=== PATIENT | male | born 1965 | race Caucasian/White ===

== ENCOUNTER 2022-10-29 10:35 | Outpatient (CLI) | payer BC, SELFPAY | END 2022-10-29 10:36 | disposition home or self-care (01) | PROVIDERS: PCP Family Medicine; Visit Provider Family Medicine | DX: E55.9 Vitamin D deficiency, unspecified (principal); E53.8 Deficiency of other specified B group vitamins; R73.01 Impaired fasting glucose; R03.0 Elevated blood-pressure reading, without diagnosis of hypertension; R53.83 Other fatigue; R00.2 Palpitations; Z13.6 Encounter for screening for cardiovascular disorders | CPT/HCPCS: 80053; 80061; 82306; 82607; 83516; 84443 ==

== ENCOUNTER 2023-03-17 07:43 | Outpatient (CLI) | payer BC, SELFPAY ==
--- OUTSIDE RECORDS SUMMARY | 2023-03-17 07:46 | XMS_ITS | Clinical Summary ---
Author Name Unknown Organization [facility] Address [place], [place] [address] Care Team Providers Care Equal Opportunity Director Name Role Phone [facility] Primary Care Provider [phone] Allergies Active Allergy Reactions Criticality Noted Date Comments Diatrizoate Allergen Other - Describe In Comment Field 09/14/2013 Slurred speech Charly Flavor Rash 10/22/2013 Poison Beth Extract Rash 05/21/2011 Tree Nut Rash 05/21/2011 Cashews Medications No known medications Active Problems Problem Noted Date Diagnosed Date Raynaud's disease 11/02/2013 Eczema 05/21/2011 BPPV (benign paroxysmal positional vertigo) 04/25 Rash 05/21/2011 Osteoarthritis 05/21/2011 Resolved Problems Problem Noted Date Diagnosed Date Resolved Date Overweight (BMI 25.0-29.9) 05/21/2011 0 10/22/2013 Immunizations Name Administration Dates Next Due AMB Influenza, IIV3 (Age >=3 years)(Flu [facility]) 11/26/2011 AMB Influenza, IIV4 PF (=>6 mos Flulaval,Fluzone Fluarix)(Flu Clinic Only) 11/11/2014,11/22/2013 Influenza, IIV3 (Age >=3 years) 11/12/2012 Tdap 10/22/2013 Social History Tobacco Use Types Packs/Day Years Used Date Smoking Tobacco: Never Smokeless Tobacco: Never Tobacco Cessation:Counseling Given: Yes Alcohol Use Standard Drinks/Week Comments Yes 0 (1 standard drink = 0.6 oz pur e alcohol) occas Sex and Gender Information Value Date Recorded Sex Assigned at Not on file Gender Identity Not on file Sexual Orientation Not on file Obstetrics History Last Filed Vital Signs Vital Sign Reading Time Taken Comments Blood Pressure 140/96 03/20/2015 2:02 PM [employer] TECH[employer]ICIAN manual cuff Pulse 68 03/20/2015 2:02 PM AGRIC[employer] ENGINEERING TECHNICIAN Temperature 36.4 ??C (97.6 ??F) 03/20/2015 2 :02 PM AGRICULT[employer] ENGINEERING TECHNICIAN Respiratory Rate - - Oxygen Saturation 100% 03/20/2015 2:0 2 PM AGRICULT[employer] ENGINEERING TECHNICIAN Inhaled Oxygen Concentration - - Weight 81.6 kg (179 lb 12.8 oz) 03/20/2015 2:02 PM AGRIC[employer] ENGINEERING TECHNICIAN Height 177.8 cm (5' 10) 03/20/2015 2:0 2 PM AGRIC[employer] ENGINEERING TECHNICIAN Body Mass Index 25.8 03/20/2015 2:02 PM AGRICULTURAL ENGINEERING TECHNICIAN Plan of Treatment Health Maintenance Due Date Last Done Comments COVID-19 vaccine series (#1) 1967 Depression screening for age 12+ 1979 HIV for age 15-65 1982 Hepatitis C screening for age 18-79 1985 Colonoscopy through age 75 01/15/2012 BMI (ht and wt on same day) for age 18+ 03/20/2016 03/20/2015 Lipids for age 45-75 05/21/2016 05/22/2011 Zoster (shingles) series for age 50+ (1 of 2) 2017 Influenza for age 50-64 10/25/2022 11/12/19 15, 11/22/2013, 11/12/2012, Additional history exists Tetanus booster 10/23/2023 10/22/2013 Tdap Completed 10/22/2013 Pneumococcal series for age 6-64 Aged Out No longer eligible based on patient's age to complete this topic Care Teams Equal Opportunity Director Relationship Specialty Start Date End Date [facility] [address] [place] [address] PCP - General 03/27/17
--- NOTE | 2023-03-17 08:59 | W.ANESCHARGE ---
Anesthesia Charges Start Date/Time Anesthesia Start Date: 03/17/23 Anesthesia Start Time: 08:33 Stop Date/Time Anesthesia Stop Date: 03/17/23 Anesthesia Stop Time: 09:00
--- NOTE | 2023-03-17 09:09 | W.ANESCHARGE ---
Anesthesia Charges Start Date/Time Anesthesia Start Date: 03/17/23 Anesthesia Start Time: 08:33 Stop Date/Time Anesthesia Stop Date: 03/17/23 Anesthesia Stop Time: 09:00
== END 2023-03-17 07:44 | disposition home or self-care (01) ==
LOC: OP CLINIC 07:45
PROVIDERS: PCP Family Medicine; Visit Provider Internal Medicine
DX: Z12.11 Encounter for screening for malignant neoplasm of colon (principal); K57.30 Diverticulosis of large intestine without perforation or abscess without bleeding; Z86.010 Personal history of colon polyps
CPT/HCPCS: 00812; 45378; J2704